=== PATIENT | female | born 1990 | race African-American/Black ===

== ENCOUNTER 2016-11-03 13:39 | Emergency (ER) | payer MEDICAID, OTHER ==
[~2016-11-03] VITALS: Ht 170.2 cm; Wt 66.0 kg
[2016-11-03] MEDS ORDERED: ACETAMINOPHEN 325MG TABLET PO STA (14:11)
[2016-11-03 14:47] LABS: BASOPHILS % 0.4 % (0.0-2.0); EOSINOPHILS % 2.9 % (0.0-5.0); HEMATOCRIT. 34.7 % (36.0-48.0); HEMOGLOBIN. 11.6 g/dL (12.0-16.0); LYMPHOCYTES % 20.3 % (20.0-50.0); MEAN CORPUSCULAR HEMOGLOBIN 31.9 pg (28.0-32.0); MEAN PLATELET VOLUME 8.1 fl (7.4-10.4); MONOCYTES % 6.4 % (2.0-8.0); PLATELET 217 x1000/uL (130-400); RED BLOOD CELL COUNT 3.65 mill/uL (4.2-5.4)
[2016-11-03] MEDS ORDERED: SODIUM CHLORIDE 0.9% 1,000 ML IV ONE (16:30)
[2016-11-03 18:11] VITALS: BP 107/65
== END 2016-11-03 19:26 | disposition home or self-care (01) ==
LOC: ER 14:32
DX: O20.9 Hemorrhage in early pregnancy, unspecified (principal); O99.019 Anemia complicating pregnancy, unspecified trimester; O26.899 Other specified pregnancy related conditions, unspecified trimester; F41.9 Anxiety disorder, unspecified; Z3A.00 Weeks of gestation of pregnancy not specified
CPT/HCPCS: 36415; 76830; 76856; 80048; 84702; 85025; 86850; 86900; 86901; 96360; 96361; 99285; Z7610; J7030